=== PATIENT | male | born 1995 | race Two or more races ===

== ENCOUNTER 2021-07-12 17:23 | Emergency (ER) | payer SELFPAY ==
[~2021-07-12] VITALS: Ht 177.8 cm; Wt 91.0 kg
[2021-07-12 17:26] VITALS: BP 138/88
[2021-07-12] MEDS ORDERED: METOCLOPRAMIDE HCL 10MG/2ML VIAL IV STA (19:21)
[2021-07-12] MEDS ORDERED: SODIUM CHLORIDE 0.9% 1,000 ML IV ONE (19:30)
[2021-07-12] MEDS ORDERED: MECLIZINE 25MG TABLET PO ONE (19:30)
[2021-07-12 21:03] LABS: BASOPHILS % 0.2 % (0.0-2.0); EOSINOPHILS % 0.1 % (0.0-5.0); HEMATOCRIT. 46.6 % (42.0-52.0); HEMOGLOBIN. 15.7 g/dL (14.0-18.0); LYMPHOCYTES % 9.4 % (20.0-50.0); MEAN CORPUSCULAR HEMOGLOBIN 28.9 pg (28.0-32.0); MEAN CORPUSCULAR VOLUME 85.7 fL (80.0-94.0); MEAN PLATELET VOLUME 7.2 fl (7.4-10.4); MONOCYTES % 2.3 % (2.0-8.0); PLATELET 309 x1000/uL (130-400); RED BLOOD CELL COUNT 5.45 mill/uL (4.7-6.1); RED CELL DISTRIBUTION WIDTH 13.3 % (11.6-14.6)
[2021-07-12 21:12] LABS: CHLORIDE 108 mEq/L (98-107)
[2021-07-12] MEDS ORDERED: MECL-217 MT (21:40)
== END 2021-07-12 19:26 | disposition home or self-care (01) ==
LOC: ER 17:23
DX: R42 Dizziness and giddiness (principal); K52.9 Noninfective gastroenteritis and colitis, unspecified; D72.829 Elevated white blood cell count, unspecified
CPT/HCPCS: 36415; 80053; 83690; 85025; 93005; 96360; 99284; J7030